=== PATIENT | male | born 1955 | race Two or more races ===

== ENCOUNTER 2022-11-21 21:34 | Inpatient (IN) | payer MEDICARE, OTHER ==
[~2022-11-21] VITALS: Ht 177.8 cm; Wt 85.0 kg
[2022-11-22 01:05] LABS: BASOPHILS % (AUTO) 0.5 % (0.0-2.0); EOSINOPHILS % (AUTO) 1.5 % (1.0-6.0); HEMATOCRIT 34.6 % (41-53); HEMOGLOBIN 11.1 g/dL (13.5-17.5); LYMPHOCYTES # (AUTO) 1.2 K/uL (1.0-4.8); LYMPHOCYTES % (AUTO) 16.5 % (22.0-44.0); MEAN CORPUSCULAR HEMOGLOBIN 27.5 pg (26.0-34.0); MEAN CORPUSCULAR HGB CONC 32.1 G/dL (31.0-37.0); MEAN CORPUSCULAR VOLUME 86 fL (80-100); MONOCYTES # (AUTO) 0.6 K/uL (0.1-1.0); MONOCYTES % (AUTO) 8.7 % (2.0-9.0); NEUTROPHILS # (AUTO) 5.3 K/uL (1.8-7.7); NEUTROPHILS % (AUTO) 72.8 % (40.0-70.0); PLATELET COUNT (AUTO) 308 K/uL (150-450); RED BLOOD CELL COUNT(AUTO) 4.05 MIL/uL (4.50-5.90); RED CELL DISTRIBUTION WIDTH 17.5 % (11.5-14.5)
[2022-11-22 01:14] LABS: ANION GAP 3 mmol/L (8-16); CALCIUM, TOTAL 8.8 mg/dL (8.8-10.5); CARBON DIOXIDE 29 mmol/L (22-29); CHLORIDE 104 mmol/L (98-107); CREATININE 0.96 mg/dL (0.60-1.30); GLOMERULAR FILTR. RATE CALC > 60 mL/min (>60); GLUCOSE,RANDOM 213 mg/dL (70-110); POTASSIUM 5.6 mmol/L (3.5-5.1); SODIUM SERUM 136 mmol/L (136-145)
[2022-11-22 01:20] LABS: ALANINE AMINOTRANSFERASE 33 U/L (12-78); ALBUMIN 2.6 g/dL (3.4-5.0); ALKALINE PHOSPHATASE 89 U/L (46-116); ASPARTATE AMINOTRANSFERASE 78 U/L (15-37); BILIRUBIN,TOTAL 0.5 mg/dL (0.1-1.0); LIPASE 13 U/L (16-77); TOTAL PROTEIN, SERUM 7.8 g/dL (6.4-8.2)
[2022-11-22] MEDS ORDERED: HALOPERIDOL LACTATE 5 MG/ML VIAL IVP ONE (02:45)
[2022-11-22] MEDS ORDERED: SODIUM CHLORIDE 0.9% 2,500 ML IV ONE (02:45)
[2022-11-22] MEDS ORDERED: ACETAMINOPHEN 1000 MG/ISO-OSM 100 ML IV ONE (02:45)
[2022-11-22] MEDS ORDERED: DiphenhydrAMINE HCL 50 MG/ML VIAL IVP ONE (02:45)
[2022-11-22] MEDS ORDERED: VANCOMYCIN HCL 1.5 GM in DEXTROSE 5%-WATER 250 ML IV ONE (03:00)
[2022-11-22 03:34] LABS: COVID AG,FIA SOURCE NASOPHARYNGEAL
[2022-11-22] MEDS ORDERED: ACETAMINOPHEN 325 MG TABLET PO PRN (06:00)
[2022-11-22] MEDS ORDERED: DEXTROSE 50%-WATER 25 GM/50 ML SYRINGE IVP PRN (06:00)
[2022-11-22] MEDS ORDERED: ONDANSETRON HCL 4 MG/2 ML VIAL IVP PRN (06:00)
[2022-11-22] MEDS ORDERED: HALOPERIDOL LACTATE 5 MG/ML VIAL IM ONE ×2 (06:45→17:15)
[2022-11-22] MEDS ORDERED: DiphenhydrAMINE HCL 50 MG/ML VIAL IM ONE (06:45)
[2022-11-22] MEDS ORDERED: LORazepam 2 MG/ML VIAL IM ONE (06:45)
[2022-11-22] MEDS ORDERED: LORazepam 2 MG/ML VIAL IVP ONE ×2 (06:45→17:15)
[2022-11-22 07:53] LABS: ANION GAP 2 mmol/L (8-16); CALCIUM, TOTAL 7.9 mg/dL (8.8-10.5); CARBON DIOXIDE 28 mmol/L (22-29); CHLORIDE 108 mmol/L (98-107); CREATININE 0.82 mg/dL (0.60-1.30); GLOMERULAR FILTR. RATE CALC > 60 mL/min (>60); GLUCOSE,RANDOM 156 mg/dL (70-110); SODIUM SERUM 138 mmol/L (136-145)
[2022-11-22] MEDS: LevETIRAcetam 500 MG in DEXTROSE 5%-WATER 100 ML IV SCH ×2 (07:56→18:01)
[2022-11-22] MEDS: HEPARIN SODIUM,PORCINE 5,000 UNITS/ML VIAL SQ SCH ×3 (08:45→23:55)
[2022-11-22] MEDS: ASPIRIN 81 MG CHEWABLE TABLET PO SCH ×2 (09:00→09:32)
[2022-11-22] MEDS: DOCUSATE SODIUM 100 MG CAPSULE PO SCH ×3 (09:00→20:25)
[2022-11-22] MEDS: ATORVASTATIN CALCIUM 20 MG TABLET PO SCH ×2 (09:00→09:31)
[2022-11-22] MEDS: FAMOTIDINE 20 MG TABLET PO SCH ×3 (09:00→20:26)
[2022-11-22 11:20] VITALS: BP 130/69; PULSE 84; RESP 19; TEMP 97.7
[2022-11-22] MEDS ORDERED: SODIUM CHLORIDE 0.9% 500 ML IV ONE (17:19)
[2022-11-22 17:56] LABS: GLUCOMETER DEV NAME(LOC) 4E.2
[2022-11-22] MEDS: VANCOMYCIN HCL 1.25 GM in DEXTROSE 5%-WATER 250 ML IV SCH (20:25)
[2022-11-22 22:35] VITALS: BP 132/84; PULSE 70; RESP 20; TEMP 97.5
[2022-11-23 04:41] LABS: APPEARANCE,URINE CLEAR (CLEAR); BILIRUBIN,URINE NEGATIVE (NEGATIVE); GLUCOSE, URINE (UA) NEGATIVE (NEGATIVE); KETONES,URINE NEGATIVE (NEGATIVE); LEUKOCYTE ESTERASE ,URINE NEGATIVE (NEGATIVE); NITRATE,URINE NEGATIVE (NEGATIVE); OCCULT BLOOD,URINE NEGATIVE (NEGATIVE); PROTEIN,URINE TRACE mg/dL (NEGATIVE); SPECIFIC GRAVITIY, URINE 1.022 (1.003-1.030); UROBILINOGEN,URINE <=1.0 mg/dL (<=1.0)
[2022-11-23 04:48] LABS: AMPHET/METH SCREEN,URINE NEGATIVE (NEGATIVE); BARBITURATE SCREEN, URINE NEGATIVE (NEGATIVE); BENZODIAZEPINES SCREEN,URINE NEGATIVE (NEGATIVE); CANNABINOID SCREEN,URINE NEGATIVE (NEGATIVE); COCAINE SCREEN,URINE NEGATIVE (NEGATIVE); METHADONE SCREEN, URINE POSITIVE (NEGATIVE); OPIATE SCREEN,URINE NEGATIVE (NEGATIVE); PHENCYCLIDINE SCREEN,URINE NEGATIVE (NEGATIVE)
[2022-11-23 04:59] LABS: BACTERIA,URINE None Seen /HPF (None Seen); RBC,URINE None Seen /HPF (0-2); SQUAMOUS EPITHELIAL CELL,UR Few /LPF (None Seen); WBC,URINE None Seen /HPF (0-5)
[2022-11-23] MEDS: LevETIRAcetam 500 MG in DEXTROSE 5%-WATER 100 ML IV SCH ×2 (05:46→17:19)
[2022-11-23 06:03] VITALS: BP 145/86; PULSE 70; RESP 20; TEMP 97.6
[2022-11-23 06:11] LABS: GLUCOMETER DEV NAME(LOC) 4E.2
[2022-11-23 07:06] VITALS: BP 127/83; PULSE 70; RESP 20; TEMP 97.5
[2022-11-23] MEDS: ASPIRIN 81 MG CHEWABLE TABLET PO SCH (08:11)
[2022-11-23] MEDS: FAMOTIDINE 20 MG TABLET PO SCH ×2 (08:12→21:00)
[2022-11-23] MEDS: DOCUSATE SODIUM 100 MG CAPSULE PO SCH ×2 (08:12→21:00)
[2022-11-23] MEDS: ATORVASTATIN CALCIUM 20 MG TABLET PO SCH (08:12)
[2022-11-23] MEDS: HEPARIN SODIUM,PORCINE 5,000 UNITS/ML VIAL SQ SCH ×2 (08:26→15:02)
[2022-11-23] MEDS: VANCOMYCIN HCL 1.25 GM in DEXTROSE 5%-WATER 250 ML IV SCH ×2 (08:26→19:48)
[2022-11-23 09:21] LABS: GLUCOMETER DEV NAME(LOC) 4E.2
[2022-11-23] MEDS: HALOPERIDOL LACTATE 5 MG/ML VIAL IM PRN (12:28)
[2022-11-23 13:11] LABS: GLUCOMETER DEV NAME(LOC) 4E.2
[2022-11-23] MEDS ORDERED: OLANZapine 10 MG TABLET PO PRN (14:15)
[2022-11-23] MEDS ORDERED: LORazepam 2 MG/ML VIAL ONE (14:50)
[2022-11-23] MEDS ORDERED: DiphenhydrAMINE HCL 50 MG/ML VIAL ONE (14:50)
[2022-11-23] MEDS ORDERED: DiphenhydrAMINE HCL 50 MG/ML VIAL IM ONE (15:00)
[2022-11-23] MEDS ORDERED: HALOPERIDOL LACTATE 5 MG/ML VIAL IM ONE (15:00)
[2022-11-23] MEDS ORDERED: LORazepam 2 MG/ML VIAL IM ONE (15:00)
[2022-11-23] MEDS: CefTRIAXone SODIUM 2 GM in DEXTROSE 5%-WATER 50 ML IV SCH (15:06)
[2022-11-23] MEDS: GABAPENTIN 400 MG CAPSULE PO SCH ×2 (15:07→21:00)
[2022-11-23 15:18] VITALS: BP 135/84; PULSE 66; RESP 20; TEMP 97.2
[2022-11-23] MEDS: MetroNIDAZOLE 500 MG/NACL 100 ML IV SCH ×2 (15:42→22:42)
[2022-11-23] MEDS: INSULIN LISPRO 100 UNITS/ML SQ PRN (17:32)
[2022-11-23 20:13] VITALS: BP 134/92; PULSE 65; RESP 20; TEMP 97.8
[2022-11-23] MEDS: RisperiDONE 1 MG TABLET PO SCH (21:00)
[2022-11-23] MEDS: INSULIN GLARGINE,HUM.REC.ANLOG 100 UNITS/ML SQ SCH (21:00)
[2022-11-23] MEDS: MIRTAZAPINE 15 MG TABLET PO SCH (21:00)
[2022-11-23] MEDS: TIMOLOL MALEATE 0.25% 5 ML OPHTHALMIC SOLUTION OU SCH (22:51)
[2022-11-23] MEDS: LATANOPROST 0.005% 2.5 ML OPHTHALMIC SOLUTION OU SCH (22:52)
[2022-11-24] MEDS: HEPARIN SODIUM,PORCINE 5,000 UNITS/ML VIAL SQ SCH ×3 (00:10→16:14)
[2022-11-24 04:13] VITALS: BP 140/80; PULSE 73; RESP 20; TEMP 97.7
[2022-11-24] MEDS: LevETIRAcetam 500 MG in DEXTROSE 5%-WATER 100 ML IV SCH ×2 (05:21→17:52)
[2022-11-24 06:16] LABS: GLUCOMETER DEV NAME(LOC) 6N.2B
[2022-11-24 07:02] LABS: GLUCOMETER DEV NAME(LOC) 6N.1
[2022-11-24 07:02] LABS: GLUCOMETER DEV NAME(LOC) 6S.2
[2022-11-24 07:02] LABS: GLUCOMETER DEV NAME(LOC) 6S.2
[2022-11-24 07:09] LABS: ANION GAP 5 mmol/L (8-16); CALCIUM, TOTAL 8.2 mg/dL (8.8-10.5); CARBON DIOXIDE 29 mmol/L (22-29); CHLORIDE 98 mmol/L (98-107); CREATININE 0.64 mg/dL (0.60-1.30); GLOMERULAR FILTR. RATE CALC > 60 mL/min (>60); GLUCOSE,RANDOM 140 mg/dL (70-110); POTASSIUM 4.5 mmol/L (3.5-5.1); SODIUM SERUM 132 mmol/L (136-145); VANCOMYCIN,RANDOM 18.3 mcg/mL (25.0-50.0)
[2022-11-24] MEDS: VANCOMYCIN HCL 1.25 GM in DEXTROSE 5%-WATER 250 ML IV SCH ×2 (08:27→21:09)
[2022-11-24 08:54] VITALS: BP 148/86; PULSE 67; RESP 19; TEMP 97.1
[2022-11-24] MEDS: DOCUSATE SODIUM 100 MG CAPSULE PO SCH ×2 (09:00→21:00)
[2022-11-24] MEDS: ASPIRIN 81 MG CHEWABLE TABLET PO SCH (09:00)
[2022-11-24] MEDS: GABAPENTIN 400 MG CAPSULE PO SCH ×4 (09:00→22:46)
[2022-11-24] MEDS: MULTIVITAMINS, THERAPEUTIC TABLET PO SCH (09:00)
[2022-11-24] MEDS: ATORVASTATIN CALCIUM 20 MG TABLET PO SCH (09:00)
[2022-11-24] MEDS: FAMOTIDINE 20 MG TABLET PO SCH ×2 (09:00→21:00)
[2022-11-24] MEDS: LISINOPRIL 20 MG TABLET PO SCH (09:00)
[2022-11-24] MEDS: TIMOLOL MALEATE 0.25% 5 ML OPHTHALMIC SOLUTION OU SCH ×2 (11:08→21:17)
[2022-11-24 12:36] LABS: GLUCOMETER DEV NAME(LOC) 4E.2
[2022-11-24 12:36] LABS: GLUCOMETER DEV NAME(LOC) 4E.2
[2022-11-24 12:36] LABS: GLUCOMETER DEV NAME(LOC) 4E.2
[2022-11-24] MEDS: CefTRIAXone SODIUM 2 GM in DEXTROSE 5%-WATER 50 ML IV SCH (14:21)
[2022-11-24] MEDS: MetroNIDAZOLE 500 MG/NACL 100 ML IV SCH ×2 (14:25→23:30)
[2022-11-24] MEDS ORDERED: SODIUM CHLORIDE 0.9% 500 ML IV ONE (18:19)
[2022-11-24 18:36] LABS: GLUCOMETER DEV NAME(LOC) 6N.1
[2022-11-24] MEDS: MIRTAZAPINE 15 MG TABLET PO SCH (21:00)
[2022-11-24] MEDS: RisperiDONE 1 MG TABLET PO SCH ×2 (21:00→22:45)
[2022-11-24] MEDS: INSULIN GLARGINE,HUM.REC.ANLOG 100 UNITS/ML SQ SCH (21:00)
[2022-11-24] MEDS: LATANOPROST 0.005% 2.5 ML OPHTHALMIC SOLUTION OU SCH (21:17)
[2022-11-24] MEDS: HALOPERIDOL LACTATE 5 MG/ML VIAL IM PRN (22:38)
[2022-11-25 06:02] LABS: GLUCOMETER DEV NAME(LOC) 4E.2
[2022-11-25] MEDS: LevETIRAcetam 500 MG in DEXTROSE 5%-WATER 100 ML IV SCH ×2 (06:24→17:38)
[2022-11-25] MEDS: MetroNIDAZOLE 500 MG/NACL 100 ML IV SCH ×3 (06:27→22:26)
[2022-11-25 07:41] LABS: BASOPHILS % (AUTO) 0.5 % (0.0-2.0); EOSINOPHILS % (AUTO) 2.2 % (1.0-6.0); HEMATOCRIT 36.8 % (41-53); HEMOGLOBIN 12.2 g/dL (13.5-17.5); LYMPHOCYTES # (AUTO) 3.2 K/uL (1.0-4.8); LYMPHOCYTES % (AUTO) 44.1 % (22.0-44.0); MEAN CORPUSCULAR HEMOGLOBIN 27.6 pg (26.0-34.0); MEAN CORPUSCULAR VOLUME 84 fL (80-100); MONOCYTES # (AUTO) 1.4 K/uL (0.1-1.0); MONOCYTES % (AUTO) 19.5 % (2.0-9.0); NEUTROPHILS # (AUTO) 2.4 K/uL (1.8-7.7); NEUTROPHILS % (AUTO) 33.7 % (40.0-70.0); PLATELET COUNT (AUTO) 270 K/uL (150-450); RED BLOOD CELL COUNT(AUTO) 4.41 MIL/uL (4.50-5.90); RED CELL DISTRIBUTION WIDTH 16.4 % (11.5-14.5)
[2022-11-25] MEDS: VANCOMYCIN HCL 1.25 GM in DEXTROSE 5%-WATER 250 ML IV SCH ×2 (07:57→19:48)
[2022-11-25] MEDS: HEPARIN SODIUM,PORCINE 5,000 UNITS/ML VIAL SQ SCH ×4 (07:58→23:22)
[2022-11-25 08:06] LABS: ALANINE AMINOTRANSFERASE 36 U/L (12-78); ALBUMIN 2.5 g/dL (3.4-5.0); ALKALINE PHOSPHATASE 73 U/L (46-116); ANION GAP 9 mmol/L (8-16); ASPARTATE AMINOTRANSFERASE 74 U/L (15-37); BILIRUBIN,TOTAL 0.4 mg/dL (0.1-1.0); CALCIUM, TOTAL 8.4 mg/dL (8.8-10.5); CARBON DIOXIDE 25 mmol/L (22-29); CHLORIDE 97 mmol/L (98-107); CREATININE 0.47 mg/dL (0.60-1.30); GLOMERULAR FILTR. RATE CALC > 60 mL/min (>60); GLUCOSE,RANDOM 100 mg/dL (70-110); POTASSIUM 4.7 mmol/L (3.5-5.1); SODIUM SERUM 131 mmol/L (136-145); TOTAL PROTEIN, SERUM 7.3 g/dL (6.4-8.2)
[2022-11-25 08:06] LABS: GLUCOMETER DEV NAME(LOC) 6N.2B
[2022-11-25] MEDS: MULTIVITAMINS, THERAPEUTIC TABLET PO SCH (09:00)
[2022-11-25] MEDS: METHADONE HCL 10 MG TABLET NG SCH (09:00)
[2022-11-25] MEDS: FAMOTIDINE 20 MG TABLET PO SCH ×2 (09:00→20:48)
[2022-11-25] MEDS: ATORVASTATIN CALCIUM 20 MG TABLET PO SCH (09:00)
[2022-11-25] MEDS: LISINOPRIL 20 MG TABLET PO SCH (09:00)
[2022-11-25] MEDS: DOCUSATE SODIUM 100 MG CAPSULE PO SCH ×2 (09:00→21:00)
[2022-11-25] MEDS: GABAPENTIN 400 MG CAPSULE PO SCH ×3 (09:00→20:47)
[2022-11-25] MEDS: ASPIRIN 81 MG CHEWABLE TABLET PO SCH (09:00)
[2022-11-25 09:03] LABS: CREATINE KINASE, TOTAL ONLY 153 U/L (39-308)
[2022-11-25] MEDS: TIMOLOL MALEATE 0.25% 5 ML OPHTHALMIC SOLUTION OU SCH ×2 (11:12→20:47)
[2022-11-25 12:32] VITALS: RESP 18
[2022-11-25] MEDS ORDERED: SODIUM CHLORIDE 0.9% 500 ML IV ONE (13:36)
[2022-11-25] MEDS: CefTRIAXone SODIUM 2 GM in DEXTROSE 5%-WATER 50 ML IV SCH (14:01)
[2022-11-25 20:01] LABS: GLUCOMETER DEV NAME(LOC) 4E.2
[2022-11-25 20:42] VITALS: BP 125/78; PULSE 65; RESP 20; TEMP 97.9
[2022-11-25] MEDS: LATANOPROST 0.005% 2.5 ML OPHTHALMIC SOLUTION OU SCH (20:47)
[2022-11-25] MEDS: RisperiDONE 1 MG TABLET PO SCH (20:47)
[2022-11-25] MEDS: MIRTAZAPINE 15 MG TABLET PO SCH (20:48)
[2022-11-25] MEDS: INSULIN LISPRO 100 UNITS/ML SQ PRN (21:01)
[2022-11-25] MEDS: INSULIN GLARGINE,HUM.REC.ANLOG 100 UNITS/ML SQ SCH (21:01)
[2022-11-26 04:42] VITALS: BP 100/63; PULSE 69; RESP 18; TEMP 98.6
[2022-11-26] MEDS: MetroNIDAZOLE 500 MG/NACL 100 ML IV SCH (05:43)
[2022-11-26] MEDS: LevETIRAcetam 500 MG in DEXTROSE 5%-WATER 100 ML IV SCH (06:45)
[2022-11-26 08:07] LABS: GLUCOMETER DEV NAME(LOC) 6S.2
[2022-11-26 08:07] LABS: GLUCOMETER DEV NAME(LOC) 6N.2B
[2022-11-26 08:30] VITALS: BP 109/73; PULSE 68; RESP 18; TEMP 98.2
[2022-11-26] MEDS: MULTIVITAMINS, THERAPEUTIC TABLET PO SCH (08:39)
[2022-11-26] MEDS: VANCOMYCIN HCL 1.25 GM in DEXTROSE 5%-WATER 250 ML IV SCH (08:39)
[2022-11-26] MEDS: LISINOPRIL 20 MG TABLET PO SCH (08:40)
[2022-11-26] MEDS: FAMOTIDINE 20 MG TABLET PO SCH (08:40)
[2022-11-26] MEDS: METHADONE HCL 10 MG TABLET NG SCH (08:40)
[2022-11-26] MEDS: DOCUSATE SODIUM 100 MG CAPSULE PO SCH (08:41)
[2022-11-26] MEDS: ASPIRIN 81 MG CHEWABLE TABLET PO SCH (08:41)
[2022-11-26] MEDS: HEPARIN SODIUM,PORCINE 5,000 UNITS/ML VIAL SQ SCH (08:41)
[2022-11-26] MEDS: GABAPENTIN 400 MG CAPSULE PO SCH (08:41)
[2022-11-26] MEDS: ATORVASTATIN CALCIUM 20 MG TABLET PO SCH (08:41)
[2022-11-26] MEDS: TIMOLOL MALEATE 0.25% 5 ML OPHTHALMIC SOLUTION OU SCH (08:45)
[2022-11-26] MEDS: INSULIN LISPRO 100 UNITS/ML SQ PRN (11:21)
[2022-11-26 14:41] LABS: GLUCOMETER DEV NAME(LOC) 4E.2
== END 2022-11-26 14:51 | disposition left against medical advice (07) | DRG 917 ==
LOC: EMS 21:35 → 6N 11-22 10:40 → 6S 11-22 11:28
PROVIDERS: ADMIT Internal Medicine; ATTEND Internal Medicine
PROC: 05HB33Z Insertion of Infusion Device into Right Basilic Vein, Percutaneous Approach (ICD-10-PCS; principal; 2022-11-22)
DX: T40.2X1A Poisoning by other opioids, accidental (unintentional), initial encounter (principal); A41.9 Sepsis, unspecified organism; G93.41 Metabolic encephalopathy; L03.116 Cellulitis of left lower limb; M86.8X7 Other osteomyelitis, ankle and foot; I10 Essential (primary) hypertension; G40.909 Epilepsy, unspecified, not intractable, without status epilepticus; E11.51 Type 2 diabetes mellitus with diabetic peripheral angiopathy without gangrene; E11.40 Type 2 diabetes mellitus with diabetic neuropathy, unspecified; B19.20 Unspecified viral hepatitis C without hepatic coma; E11.69 Type 2 diabetes mellitus with other specified complication; Z20.822 Contact with and (suspected) exposure to COVID-19; Z53.21 Procedure and treatment not carried out due to patient leaving prior to being seen by health care provider; F32.A Depression, unspecified; F19.10 Other psychoactive substance abuse, uncomplicated; F25.9 Schizoaffective disorder, unspecified; F41.9 Anxiety disorder, unspecified; S91.301A Unspecified open wound, right foot, initial encounter; X58.XXXA Exposure to other specified factors, initial encounter; Y93.89 Activity, other specified; Y99.8 Other external cause status; Z87.820 Personal history of traumatic brain injury; Z72.0 Tobacco use; Z89.431 Acquired absence of right foot; Z88.8 Allergy status to other drugs, medicaments and biological substances; Y92.89 Other specified places as the place of occurrence of the external cause
CPT/HCPCS: 36245; 36569; 70450; 71045; 76937; 80048; 80053; 80202; 80307; 81001; 82550; 82962; 83605; 83690; 84484; 85025; 92526; 92610; 93005; 99291; G0480; J0131; J0696; J0712; J1200; J1630; J1644; J1815; J2060; J3370; J3490; J7030; J7040; J7060; 36415-L1; 36415-TC